=== PATIENT | male | born 1960 | race Two or more races ===

== ENCOUNTER 2024-12-17 13:15 | Emergency (ER) | payer MEDICARE ==
[~2024-12-17] VITALS: Ht 167.6 cm; Wt 75.0 kg
[2024-12-17 13:25] VITALS: BP 134/87; PULSE 95; RESP 18; TEMP 98; O2SAT 98
== END 2024-12-17 15:17 | disposition left against medical advice (07) ==
LOC: EMS 13:15
DX: K62.89 Other specified diseases of anus and rectum (principal); Z53.21 Procedure and treatment not carried out due to patient leaving prior to being seen by health care provider